=== PATIENT | female | born 1960 | race Caucasian/White ===

== ENCOUNTER 2017-06-02 14:10 | Emergency (ER) | payer MEDICARE, MEDICAID ==
[2017-06-02 14:57] VITALS: BP 140/71
[2017-06-02] MEDS ORDERED: Sodium Chloride 0.9% 1,000 ML IV SCH (15:15)
[2017-06-02] MEDS ORDERED: Insulin Regular, Human 100 Units/ML 10 ML Vial IV ONE (15:50)
[2017-06-02 15:57] LABS: CHLORIDE,CL 98 mmol/L (98-115); SODIUM,NA 133 mmol/L (136-145)
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
== END 2017-06-02 17:25 | disposition home or self-care (01) ==
LOC: KA.ED 14:10
DX: E86.0 Dehydration (principal); E11.65 Type 2 diabetes mellitus with hyperglycemia; R55 Syncope and collapse; F17.210 Nicotine dependence, cigarettes, uncomplicated; Z91.030 Bee allergy status; Z79.84 Long term (current) use of oral hypoglycemic drugs; Z79.899 Other long term (current) drug therapy
CPT/HCPCS: 36415; 80053; 81001; 82962; 84484; 85025; 96360; 96361; 96372; 99283; J1817; J7030; 93005

== ENCOUNTER 2019-10-08 02:21 | Emergency (ER) | payer MEDICARE, MEDICAID ==
[2019-10-08] MEDS ORDERED: Lidocaine 1% 20 ML MDV ONE (02:28)
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
[2019-10-08 02:49] VITALS: BP 184/86; PULSE 123
== END 2019-10-08 03:25 | disposition home or self-care (01) ==
LOC: KA.ED 02:21
DX: S01.112A Laceration without foreign body of left eyelid and periocular area, initial encounter (principal); S80.02XA Contusion of left knee, initial encounter; E78.00 Pure hypercholesterolemia, unspecified; F41.9 Anxiety disorder, unspecified; F32.9 Major depressive disorder, single episode, unspecified; E11.9 Type 2 diabetes mellitus without complications; E66.9 Obesity, unspecified; Z68.30 Body mass index [BMI] 30.0-30.9, adult; Z91.030 Bee allergy status; Z79.84 Long term (current) use of oral hypoglycemic drugs; Z79.899 Other long term (current) drug therapy; W01.0XXA Fall on same level from slipping, tripping and stumbling without subsequent striking against object, initial encounter
CPT/HCPCS: 12014; 73562-LT; 99283-25; 99284; J2001

== ENCOUNTER 2021-01-19 06:52 | Emergency (ER) | payer MEDICARE, MEDICAID ==
[2021-01-19 07:17] VITALS: BP 136/73; PULSE 98
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
--- NOTE | 2021-01-19 08:41 | CR ---
[id number] RAD/RAD Lumbar Spine 2-3V EXAM: RAD Lumbar Spine 2-3V INDICATION: RIGHT HIP PAIN. COMPARISON: None. DISCUSSION: The vertebral bodies are normal in height and alignment. Mild disc degeneration throughout the lumbar spine. Moderate bilateral facet arthropathy L3-L5. IMPRESSION: 1. Mild to moderate lumbar spondylosis. Damien Green MD 01/19/21 0840 Thank you for allowing us to participate in the care of your patient.
--- NOTE | 2021-01-19 08:42 | CR ---
[id number] RAD/RAD Pelvis 1V W 2V Right Hip EXAM: RAD Pelvis 1V W 2V Right Hip INDICATION: RIGHT HIP PAIN. COMPARISON: None. FINDINGS: Mild osteoarthritis of the hips and sacroiliac joints. No acute fracture or dislocation. A prominent stool volume is noted. IMPRESSION: 1. Mild osteoarthritis. Damien Green MD 01/19/21 0841 Thank you for allowing us to participate in the care of your patient.
== END 2021-01-19 08:45 | disposition home or self-care (01) ==
LOC: KA.ED 06:52
DX: M54.31 Sciatica, right side (principal); E78.00 Pure hypercholesterolemia, unspecified; J44.9 Chronic obstructive pulmonary disease, unspecified; K21.9 Gastro-esophageal reflux disease without esophagitis; E11.9 Type 2 diabetes mellitus without complications; Z72.0 Tobacco use; Z91.030 Bee allergy status; Z79.82 Long term (current) use of aspirin; Z79.899 Other long term (current) drug therapy; Z79.4 Long term (current) use of insulin
CPT/HCPCS: 72100; 99283

== ENCOUNTER 2021-02-19 22:09 | Emergency (ER) | payer MEDICARE, MEDICAID ==
[2021-02-19 22:25] VITALS: BP 149/85; PULSE 93
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
[2021-02-19] MEDS: Ketorolac 30 MG/ML SDV IM ONE (22:46)
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
== END 2021-02-19 23:20 | disposition home or self-care (01) ==
LOC: KA.ED 22:09
DX: S80.212A Abrasion, left knee, initial encounter (principal); M25.561 Pain in right knee; M25.551 Pain in right hip; J44.9 Chronic obstructive pulmonary disease, unspecified; E78.00 Pure hypercholesterolemia, unspecified; K21.9 Gastro-esophageal reflux disease without esophagitis; M19.90 Unspecified osteoarthritis, unspecified site; E11.9 Type 2 diabetes mellitus without complications; E66.9 Obesity, unspecified; Z68.27 Body mass index [BMI] 27.0-27.9, adult; Z88.4 Allergy status to anesthetic agent; Z91.030 Bee allergy status; Z91.048 Other nonmedicinal substance allergy status; Z79.82 Long term (current) use of aspirin; Z79.4 Long term (current) use of insulin; Z79.899 Other long term (current) drug therapy; W18.30XA Fall on same level, unspecified, initial encounter
CPT/HCPCS: 73560-RT; 96372; 99283; 99283-25; J1885

== ENCOUNTER 2021-02-23 01:16 | Emergency (ER) | payer MEDICARE, MEDICAID ==
[2021-02-23] MEDS ORDERED: Ketorolac 60 MG/2 ML SDV IM ONE (01:24)
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
[2021-02-23 01:33] VITALS: BP 186/96; PULSE 100
== END 2021-02-23 02:00 | disposition home or self-care (01) ==
LOC: KA.ED 01:16 → SUPCPDRO 01:16 → KA.ED 02:00
DX: M25.561 Pain in right knee (principal); M15.0 Primary generalized (osteo)arthritis; M54.31 Sciatica, right side; M79.651 Pain in right thigh; E11.9 Type 2 diabetes mellitus without complications; E66.9 Obesity, unspecified; E78.00 Pure hypercholesterolemia, unspecified; K21.9 Gastro-esophageal reflux disease without esophagitis; M19.90 Unspecified osteoarthritis, unspecified site; Z88.4 Allergy status to anesthetic agent; Z91.030 Bee allergy status; Z91.048 Other nonmedicinal substance allergy status; Z79.82 Long term (current) use of aspirin; Z79.4 Long term (current) use of insulin; Z79.899 Other long term (current) drug therapy
CPT/HCPCS: 96372; 99283; 99284; J1885

== ENCOUNTER 2021-03-16 05:41 | Emergency (ER) | payer MEDICARE, MEDICAID ==
[2021-03-16 06:04] VITALS: BP 142/74; PULSE 100
[2021-03-16] MEDS ORDERED: Ketorolac 60 MG/2 ML SDV IM ONE (06:36)
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
== END 2021-03-16 07:05 | disposition home or self-care (01) ==
LOC: KA.ED 05:41
DX: M25.552 Pain in left hip (principal); K21.9 Gastro-esophageal reflux disease without esophagitis; E66.9 Obesity, unspecified; E11.9 Type 2 diabetes mellitus without complications; Z79.82 Long term (current) use of aspirin; Z79.4 Long term (current) use of insulin; Z79.899 Other long term (current) drug therapy; Z88.4 Allergy status to anesthetic agent; Z72.0 Tobacco use; Z91.030 Bee allergy status; Z88.8 Allergy status to other drugs, medicaments and biological substances; Z68.26 Body mass index [BMI] 26.0-26.9, adult
CPT/HCPCS: 96372; 99283; J1885

== ENCOUNTER 2021-04-28 05:32 | Emergency (ER) | payer MEDICARE, MEDICAID ==
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
[2021-04-28] MEDS ORDERED: Sodium Chloride 0.9% 10 ML Syringe FLUSH PRN (05:41)
[2021-04-28] MEDS ORDERED: Sodium Chloride 0.9% 1,000 ML IV ONE (05:42)
[2021-04-28] MEDS ORDERED: Ondansetron 4 MG/2 ML SDV IVPUSH ONE (05:48)
[2021-04-28 07:32] LABS: ANION GAP 19.6 mmol/L (5-15)
[2021-04-28] MEDS ORDERED: Sodium Chloride 0.9% 1,000 ML IV SCH (08:45)
[2021-04-28] MEDS ORDERED: cefTRIAXone 1 GM Vial IVPUSH ONE (08:45)
--- NOTE | 2021-04-28 09:40 | CR ---
[id number] RAD/RAD Chest PA or AP 1V EXAM: RAD Chest PA or AP 1V INDICATION: ELEVATED WBC, RENAL FAILURE, DIABETES. COMPARISON: None. DISCUSSION/IMPRESSION: Cardiomediastinal silhouette is normal in size and contour. Mild central hilar prominence bilaterally. Finding is nonspecific. However could represent underlying hilar lymphadenopathy is/are changes of bronchitis/bronchiolitis. Consider CT examination of the chest without contrast for further evaluation. Lungs are otherwise clear. Johan Bahena MD 04/28/21 0997 Thank you for allowing us to participate in the care of your patient.
[2021-04-28] MEDS ORDERED: HYDROmorphone 1 MG/ML Syringe IVPUSH ONE (10:02)
[2021-04-28 10:18] VITALS: BP 100/43; PULSE 105
== END 2021-04-28 10:40 ==
LOC: KA.ED 05:32
DX: N39.0 Urinary tract infection, site not specified (principal); R00.0 Tachycardia, unspecified; R79.89 Other specified abnormal findings of blood chemistry; N19 Unspecified kidney failure; M19.90 Unspecified osteoarthritis, unspecified site; E11.9 Type 2 diabetes mellitus without complications; J44.9 Chronic obstructive pulmonary disease, unspecified; E66.9 Obesity, unspecified; Z68.26 Body mass index [BMI] 26.0-26.9, adult; Z88.4 Allergy status to anesthetic agent; Z91.030 Bee allergy status; Z91.048 Other nonmedicinal substance allergy status; E78.00 Pure hypercholesterolemia, unspecified; Z79.82 Long term (current) use of aspirin; Z79.899 Other long term (current) drug therapy
CPT/HCPCS: 36415; 71045; 80053; 81001; 82150; 83605; 83690; 84484; 85025; 87040; 87086; 87088; 87150; 87186; 93005; 96374; 96375; 99284; 99285-25; J0696; J1170; J2405; J7030

== ENCOUNTER 2021-04-29 15:11 | Emergency (ER) | payer MEDICARE, MEDICAID ==
[2021-04-29] MEDS ORDERED: Sodium Chloride 0.9% 1,000 ML IV ONE (15:59)
[2021-04-29] MEDS ORDERED: Sodium Chloride 0.9% 10 ML Syringe FLUSH PRN (15:59)
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
[2021-04-29 16:12] LABS: ANION GAP 15.1 mmol/L (5-15); CHLORIDE,CL 99 mmol/L (98-107); SODIUM,NA 132 mmol/L (136-145)
[2021-04-29 16:42] VITALS: BP 128/49; PULSE 93
== END 2021-04-29 16:58 | disposition home or self-care (01) ==
LOC: KA.ED 15:11
DX: E86.0 Dehydration (principal); R79.89 Other specified abnormal findings of blood chemistry; E11.9 Type 2 diabetes mellitus without complications; E66.9 Obesity, unspecified; E78.00 Pure hypercholesterolemia, unspecified; J44.9 Chronic obstructive pulmonary disease, unspecified; K21.9 Gastro-esophageal reflux disease without esophagitis; Z79.82 Long term (current) use of aspirin; Z79.899 Other long term (current) drug therapy; Z88.4 Allergy status to anesthetic agent; Z91.030 Bee allergy status; Z91.048 Other nonmedicinal substance allergy status
CPT/HCPCS: 36415; 80053; 81001; 82140; 83605; 83690; 85025; 99283; 99284; J7030

== ENCOUNTER 2021-11-12 11:14 | Inpatient (IN) | payer MEDICARE, MEDICAID ==
[2021-11-12] MEDS ORDERED: Sodium Chloride 0.9% 10 ML Syringe FLUSH PRN (11:42)
[2021-11-12] MEDS ORDERED: Sodium Chloride 0.9% 1,000 ML IV ONE (11:42)
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
--- NOTE | 2021-11-12 12:51 | CR ---
[id number] RAD/RAD Ankle Left 2V EXAM: 2 VIEWS LEFT ANKLE. INDICATION: LEFT ANKLE PAIN. COMPARISON: None. DISCUSSION: Acute multi fragmentary trimalleolar fracture of the left ankle. There is lateral dislocation of the tibiotalar joint. There is extensive displacement of the fracture fragments. Associated soft tissue edema and left ankle joint effusion. IMPRESSION: 1. Fracture dislocation of the left ankle as described above. Denny Torres DO 11/12/21 0064 Thank you for allowing us to participate in the care of your patient.
[2021-11-12] MEDS ORDERED: HYDROmorphone 1 MG/ML Syringe IVPUSH ONE (12:56)
[2021-11-12 13:28] LABS: ANION GAP 15.5 mmol/L (5-15); CHLORIDE,CL 98 mmol/L (98-107); SODIUM,NA 133 mmol/L (136-145)
--- NOTE | 2021-11-12 14:06 | CR ---
[id number] RAD/RAD Ankle Left 2V EXAM: RAD Ankle Left 2V INDICATION: CONFIRM REDUCTION OF DISPLACED FRACTURE. COMPARISON: November 12 at 1223 hours. DISCUSSION: Diffuse soft tissue swelling. Oblique distal fibula fracture. Alignment is improved but there is persistent posterior displacement of about 2.5 mm a medial malleolus fracture is in improved alignment, but demonstrates persistent distraction of about 4 mm. Mineralization in the distal Achilles tendon could be from enthesopathy or prior tearing. IMPRESSION: 1. Medial and lateral malleolar fractures are in improved alignment. Tibiotalar alignment has normalized. Damien Green MD 11/12/21 0779 Thank you for allowing us to participate in the care of your patient.
--- NOTE | 2021-11-12 14:56 | CR ---
[id number] RAD/RAD Chest PA And Lateral EXAM: RAD Chest PA And Lateral INDICATION: LEUKOCYTOSIS. COMPARISON: None. DISCUSSION: Cardiomediastinal silhouette is normal in size and contour. Prominence of the right hilar region. No pneumothorax or pleural effusion. IMPRESSION: Prominence of the right hilar region. Underlying mass is not excluded. Dedicated CT of the chest with contrast is recommended for further evaluation. Denny Torres DO 11/12/21 [id number] Thank you for allowing us to participate in the care of your patient.
[2021-11-12] MEDS ORDERED: Ondansetron 4 MG/2 ML SDV IV PRN (17:16)
[2021-11-12] MEDS ORDERED: Nicotine 7 MG/24 Hr Patch TRDERM PRN (17:20)
[2021-11-12] MEDS ORDERED: 50% Dextrose in Water 50 ML Syringe IVPUSH PRN (17:21)
[2021-11-12] MEDS ORDERED: HYDROmorphone 1 MG/ML Syringe IVPUSH PRN (17:21)
[2021-11-12] MEDS ORDERED: Glucagon,Human Recombinant 1 MG Vial IM PRN (17:21)
[2021-11-12] MEDS ORDERED: Albuterol/Ipratropium 3.0-0.5 MG/3 ML Neb Soln INH PRN (17:22)
[2021-11-12] MEDS: Sodium Chloride 0.9% 1,000 ML IV SCH (17:52)
[2021-11-12] MEDS: Insulin Aspart 100 Units/ML 3 ML Pen SUBCUT SCH ×2 (18:03→21:30)
[2021-11-12] MEDS: Glimepiride 2 MG Tab PO SCH (18:06)
[2021-11-12] MEDS ORDERED: Morphine 2 MG/ML SYRINGE IVPUSH PRN (19:27)
[2021-11-12] MEDS: Acetaminophen/HYDROcodone 325-5 MG Tab PO PRN (19:31)
[2021-11-12] MEDS ORDERED: Lisinopril 5 MG Tab PO SCH (21:00)
[2021-11-12] MEDS ORDERED: Rosuvastatin 5 MG Tab PO SCH (21:00)
[2021-11-12] MEDS ORDERED: DULoxetine 30 MG Cap PO SCH (21:00)
[2021-11-12] MEDS ORDERED: Non-Formulary Medication 1 Each (Canagliflozin [Invokana] 100 MG Tablet) PO SCH (21:00)
[2021-11-12] MEDS ORDERED: Pantoprazole 40 MG Tab.CR PO SCH (21:00)
[2021-11-12] MEDS ORDERED: Insulin Glargine,Hum.Rec.Anlog 100 UNIT/ML 3 ML Pen SUBCUT SCH (21:00)
--- NOTE | 2021-11-12 21:10 | CR ---
[id number] RAD/RAD Pelvis 1-2V EXAM: AP PELVIS, LEFT FEMUR 2 VIEWS CLINICAL DATA: FALL COMPARISON: January 19, 2021. FINDINGS: Mild osteoarthritis of the hips, left knee, and sacroiliac joints. No acute fracture or dislocation IMPRESSION: 1. No acute findings. Damien Green MD 11/12/21 0099 Thank you for allowing us to participate in the care of your patient.
--- NOTE | 2021-11-12 21:10 | CR ---
[id number] RAD/RAD Femur Left 2V EXAM: AP PELVIS, LEFT FEMUR 2 VIEWS CLINICAL DATA: FALL COMPARISON: January 19, 2021. FINDINGS: Mild osteoarthritis of the hips, left knee, and sacroiliac joints. No acute fracture or dislocation IMPRESSION: 1. No acute findings. Damien Green MD 11/12/21 [id number] Thank you for allowing us to participate in the care of your patient.
[2021-11-12] MEDS: Pregabalin 25 MG Cap PO SCH (21:26)
[2021-11-12] MEDS: Baclofen 10 MG Tab PO SCH (21:26)
[2021-11-13] MEDS: Sodium Chloride 0.9% 1,000 ML IV SCH ×2 (02:23→10:27)
[2021-11-13] MEDS: Insulin Aspart 100 Units/ML 3 ML Pen SUBCUT SCH ×2 (07:58→11:34)
[2021-11-13] MEDS: Pregabalin 25 MG Cap PO SCH (08:01)
[2021-11-13] MEDS: Baclofen 10 MG Tab PO SCH (08:01)
[2021-11-13] MEDS: Glimepiride 2 MG Tab PO SCH (08:01)
[2021-11-13 08:16] LABS: ANION GAP 14.9 mmol/L (5-15); CHLORIDE,CL 103 mmol/L (98-107); SODIUM,NA 140 mmol/L (136-145)
[2021-11-13] MEDS ORDERED: Cholecalciferol (Vitamin D3) 25 MCG Tab PO SCH (09:00)
[2021-11-13] MEDS ORDERED: Formoterol/Mometasone 100-5 MCG 8.8 GM Inhaler IH SCH (09:00)
[2021-11-13] MEDS ORDERED: Non-Formulary Medication 1 Each (Cyanocobalamin (Vitamin B-12) [Vitamin B-12] 100 MCG Tabl PO SCH (09:00)
[2021-11-13] MEDS ORDERED: Non-Formulary Medication 1 Each (Fenofibrate [Fenofibrate] 160 MG Tablet) PO SCH (09:00)
[2021-11-13] MEDS ORDERED: Baclofen 10 MG Tab PO PRN (10:00)
[2021-11-13] MEDS: Acetaminophen/HYDROcodone 325-5 MG Tab PO PRN (10:16)
[2021-11-13 10:20] VITALS: BP 108/59; PULSE 99
[2021-11-13] MEDS ORDERED: cefTRIAXone 1 GM Vial IVPUSH SCH (10:30)
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
--- NOTE | 2021-11-13 12:08 | PCM.DCSUM1 ---
Discharge Summary - Hospital Course Free Text/Narrative:: Date of admission: 11/12/21 Date of discharge: 11/13/21 Admission diagnoses: Discharge diagnoses: Hospital course: 11/13/21: Patient reports pain 6/10 to Left ankle, denies other concerns including urinary symptoms. Affect rather flat. Vitals stable, afebrile: 97.1, HR 88, BP 131/71, RR 20, 94% on room air. WBC 21.01, Hgb 13.0, Plt 558. WBC remains elevated this morning, UA suggestive of UTI with > 100 WBC, moderate bacteria. Will start patient on rocephin 1g for probable UTI as patient is a rather poor historian based on bacteruria and leukocytosis. Blood glucose improved with sliding scale insulin, glucose 452 in ER, 152 this am. Patient case discussed with Dr Hudson, [facility] ER who accepts to transfer patient for planned ORIF of L ankle per Dr Dewey to be completed likely tomorrow morning. Patient to remain NPO upon transfer in case surgery able to be completed later today. [facility] requesting that a CT of the L ankle and head CT without contrast be obtained prior to transfer to [place]. Dr Hudson indicates that results do not need to be completed prior to transfer, however they request that images be obtained and pushed to [place] prior to transfer by EMS. Discharge and follow-up recommendations: - Discharge to [facility] for ORIF of L ankle s/p ankle fracture per Dr Dewey. - New medications at discharge: Substituting protonix 40mg PO daily for omeprazole; holding ASA 81mg daily and mobic preoperatively. - Follow-up with PCP post-hospitalization for ORIF of left ankle s/p fall yesterday at home - Discharge Data Discharge Disposition: Home, Self-Care 01 Condition: Good - Referral to Home Health Primary Care Physician: Martha Myers NP - Discharge Plan Home Medications: Home Meds Fenofibrate 160 mg PO DAILY 07/08/16 [History] Aspirin [Adult Low Dose Aspirin EC] 81 mg PO DAILY 08/15/18 [History] Fluticasone/Vilanterol [Breo Ellipta 100-25 MCG Inhalation Kit] 1 puff INH DAILY 08/15/18 [History] Insulin Detemir [Levemir] 50 unit SUBCUT BEDTIME 01/19/21 [History] Acetaminophen [Tylenol Arthritis] 650 mg PO Q8H PRN 03/16/21 [History] Canagliflozin [Invokana] 100 mg PO BEDTIME 04/23/21 [History] Glimepiride [Amaryl] 2 mg PO BIDMEALS 04/23/21 [History] Albuterol Sulfate [Albuterol Sulfate HFA] 1 - 2 puff INH Q4H PRN 04/29/21 [History] Albuterol/Ipratropium [DuoNeb 3.0-0.5 MG/3 ML] 3 ml INH Q6H PRN 04/29/21 [History] EPINEPHrine [Epinephrine] 0.3 mg IM ASDIRECTED PRN 04/29/21 [History] Non-Formulary Medication [NF Drug] 1 applic TOP BID PRN 04/29/21 [History] Omeprazole 20 mg PO BEDTIME 04/29/21 [History] Rosuvastatin [Crestor] 5 mg PO BEDTIME 04/29/21 [History] Saliva Substitute Combo No.9 [Biotene] 15 ml MM BID 04/29/21 [History] ALPRAZolam [Xanax] 0.25 mg PO DAILY PRN 07/03/21 [History] lisinopriL [Lisinopril] 10 mg PO BEDTIME 07/03/21 [History] Baclofen 10 mg PO TID 11/12/21 [History] Cholecalciferol (Vitamin D3) [Vitamin D3] 125 mcg PO DAILY 11/12/21 [History] Cyanocobalamin (Vitamin B-12) [Vitamin B-12] 100 mcg PO DAILY 11/12/21 [History] DULoxetine [Cymbalta] 60 mg PO BEDTIME 11/12/21 [History] Meloxicam [Mobic] 15 mg PO BEDTIME 11/12/21 [History] Pregabalin [Lyrica] 150 mg PO BID 11/12/21 [History] Forms: ED Department Discharge Referrals: Martha Myers TRY OUT PERSON [Primary Care Provider] - - General Info Date of Service: 11/13/21 Subjective Update: See ROS from H&P from today Functional Status: Reports: Pain Controlled. Denies: Ambulating - Patient Data Vitals - Most Recent: Last Vital Signs Temp 98 F 11/13/21 10:18 Pulse 99 11/13/21 10:18 Resp 18 11/13/21 10:18 BP 108/59 L 11/13/21 10:18 Pulse Ox 91 L 11/13/21 10:18 Weight - Most Recent: 146 lb 9.718 oz I&O - Last 24 hours: Intake & Output 11/12/21 11/13/21 11/13/21 22:59 06:59 14:59 Intake Total 300 1470 Balance 300 1470 Lab Results - Last 24 hrs: Laboratory Results - last 24 hr 11/12/21 11/12/21 11/12/21 Range/Units 12:55 12:55 14:15 WBC 23.61 H D (5.00-10.00) 10^3/uL RBC 4.15 (3.80-5.50) 10^6/uL Hgb 12.6 D (12.0-16.0) g/dL Hct 36.6 L (37.0-47.0) % MCV 88.2 (82.0-92.0) fL MCH 30.4 (27.0-31.0) pg MCHC 34.4 (32.0-36.0) g/dL RDW 11.5 (11.5-14.5) % Plt Count 542 H D (150-400) 10^3/uL MPV 8.6 (7.4-10.4) fL Immature Gran % (Auto) 1.1 (0.0-5.0) % Neut % (Auto) 86.8 H (50.0-70.0) % Lymph % (Auto) 7.7 L (20.0-40.0) % [place] % (Auto) 4.0 (2.0-8.0) % Eos % (Auto) 0.3 L (1.0-3.0) % Baso % (Auto) 0.1 (0.0-1.0) % Neut # (Auto) 20.52 H (2.50-7.00) 10^3/uL Lymph # (Auto) 1.81 (1.00-4.00) 10^3/uL [place] # (Auto) 0.94 H (0.10-0.80) 10^3/uL Eos # (Auto) 0.06 L (0.10-0.30) 10^3/uL Baso # (Auto) 0.03 (0.00-0.10) 10^3/uL Immature Gran # (Auto) 0.25 (0.00-0.50) 10^3/uL Sodium 133 L (136-145) mmol/L Potassium 4.1 (3.5-5.1) mmol/L Chloride 98 (98-107) mmol/L Carbon Dioxide 23.6 (21.0-32.0) mmol/L Anion Gap 15.5 H (5-15) mmol/L BUN 13 (7-18) mg/dL Creatinine 0.73 (0.51-1.17) mg/dL Est Cr Clr Drug Dosing 62.61 mL/min Estimated GFR (MDRD) > 60 mL/min Glucose 484 H (70-140) mg/dL POC Glucose (70-140) mg/dL Calcium 8.3 L (8.7-10.3) mg/dL Total Bilirubin (0.2-1.0) mg/dL AST (15-37) U/L ALT (14-63) U/L Alkaline Phosphatase (46-116) U/L Total Protein (6.4-8.2) g/dL Albumin (3.40-5.00) g/dL Specimen Type Urine Color (YELLOW) Urine Appearance (CLEAR) Urine pH (5.0-9.0) Ur Specific [place] (1.005-1.030) Urine Protein (NEGATIVE) mg/dL Urine Glucose (UA) (NEGATIVE) mg/dL Urine Ketones (NEGATIVE) mg/dL Urine Occult Blood (NEGATIVE) Urine Nitrite (NEGATIVE) Urine Bilirubin (NEGATIVE) Urine Urobilinogen (0.2-1.0) E.U./dL Ur Leukocyte Esterase (NEGATIVE) Urine RBC (0-5) /HPF Urine WBC (0-5) /HPF Ur Epithelial Cells /LPF Urine Bacteria (NONE TO FEW) /HPF SARS CoV-2 RNA Rapid LENA Negative (NEGATIVE) 11/12/21 11/12/21 11/12/21 Range/Units 16:14 17:42 21:12 WBC (5.00-10.00) 10^3/uL RBC (3.80-5.50) 10^6/uL Hgb (12.0-16.0) g/dL Hct (37.0-47.0) % MCV (82.0-92.0) fL MCH (27.0-31.0) pg MCHC (32.0-36.0) g/dL RDW (11.5-14.5) % Plt Count (150-400) 10^3/uL MPV (7.4-10.4) fL Immature Gran % (Auto) (0.0-5.0) % Neut % (Auto) (50.0-70.0) % Lymph % (Auto) (20.0-40.0) % [place] % (Auto) (2.0-8.0) % Eos % (Auto) (1.0-3.0) % Baso % (Auto) (0.0-1.0) % Neut # (Auto) (2.50-7.00) 10^3/uL Lymph # (Auto) (1.00-4.00) 10^3/uL [place] # (Auto) (0.10-0.80) 10^3/uL Eos # (Auto) (0.10-0.30) 10^3/uL Baso # (Auto) (0.00-0.10) 10^3/uL Immature Gran # (Auto) (0.00-0.50) 10^3/uL Sodium (136-145) mmol/L Potassium (3.5-5.1) mmol/L Chloride (98-107) mmol/L Carbon Dioxide (21.0-32.0) mmol/L Anion Gap (5-15) mmol/L BUN (7-18) mg/dL Creatinine (0.51-1.17) mg/dL Est Cr Clr Drug Dosing mL/min Estimated GFR (MDRD) mL/min Glucose (70-140) mg/dL POC Glucose 423 H 371 H (70-140) mg/dL Calcium (8.7-10.3) mg/dL Total Bilirubin (0.2-1.0) mg/dL AST (15-37) U/L ALT (14-63) U/L Alkaline Phosphatase (46-116) U/L Total Protein (6.4-8.2) g/dL Albumin (3.40-5.00) g/dL Specimen Type [place]rin[place]ad Urine Color Yellow (YELLOW) Urine Appearance Slightly cloudy H (CLEAR) Urine pH 6.0 (5.0-9.0) Ur Specific [place] 1.015 (1.005-1.030) Urine Protein 100 H (NEGATIVE) mg/dL Urine Glucose (UA) >=1000 H (NEGATIVE) mg/dL Urine Ketones Negative (NEGATIVE) mg/dL Urine Occult Blood Large H (NEGATIVE) Urine Nitrite Positive H (NEGATIVE) Urine Bilirubin Negative (NEGATIVE) Urine Urobilinogen 0.2 (0.2-1.0) E.U./dL Ur Leukocyte Esterase Trace H (NEGATIVE) Urine RBC 20-30 H (0-5) /HPF Urine WBC >100 H (0-5) /HPF Ur Epithelial Cells Rare /LPF Urine Bacteria Moderate H (NONE TO FEW) /HPF SARS CoV-2 RNA Rapid LENA (NEGATIVE) 11/13/21 11/13/21 11/13/21 Range/Units 07:28 07:50 07:50 WBC 21.01 H (5.00-10.00) 10^3/uL RBC 4.27 (3.80-5.50) 10^6/uL Hgb 13.0 (12.0-16.0) g/dL Hct 38.5 (37.0-47.0) % MCV 90.2 (82.0-92.0) fL MCH 30.4 (27.0-31.0) pg MCHC 33.8 (32.0-36.0) g/dL RDW 11.7 (11.5-14.5) % Plt Count 558 H (150-400) 10^3/uL MPV 8.6 (7.4-10.4) fL Immature Gran % (Auto) 0.9 (0.0-5.0) % Neut % (Auto) 76.9 H (50.0-70.0) % Lymph % (Auto) 14.4 L (20.0-40.0) % [place] % (Auto) 5.1 (2.0-8.0) % Eos % (Auto) 2.5 (1.0-3.0) % Baso % (Auto) 0.2 (0.0-1.0) % Neut # (Auto) 16.17 H (2.50-7.00) 10^3/uL Lymph # (Auto) 3.02 (1.00-4.00) 10^3/uL [place] # (Auto) 1.07 H (0.10-0.80) 10^3/uL Eos # (Auto) 0.52 H (0.10-0.30) 10^3/uL Baso # (Auto) 0.05 (0.00-0.10) 10^3/uL Immature Gran # (Auto) 0.18 (0.00-0.50) 10^3/uL Sodium 140 (136-145) mmol/L Potassium 4.0 (3.5-5.1) mmol/L Chloride 103 (98-107) mmol/L Carbon Dioxide 26.1 (21.0-32.0) mmol/L Anion Gap 14.9 (5-15) mmol/L BUN 15 (7-18) mg/dL Creatinine 0.71 (0.51-1.17) mg/dL Est Cr Clr Drug Dosing 64.38 mL/min Estimated GFR (MDRD) > 60 mL/min Glucose 157 H (70-140) mg/dL POC Glucose 152 H (70-140) mg/dL Calcium 8.8 (8.7-10.3) mg/dL Total Bilirubin 0.3 (0.2-1.0) mg/dL AST 10 L (15-37) U/L ALT 13 L (14-63) U/L Alkaline Phosphatase 136 H (46-116) U/L Total Protein 7.0 (6.4-8.2) g/dL Albumin 1.92 L (3.40-5.00) g/dL Specimen Type Urine Color (YELLOW) Urine Appearance (CLEAR) Urine pH (5.0-9.0) Ur Specific [place] (1.005-1.030) Urine Protein (NEGATIVE) mg/dL Urine Glucose (UA) (NEGATIVE) mg/dL Urine Ketones (NEGATIVE) mg/dL Urine Occult Blood (NEGATIVE) Urine Nitrite (NEGATIVE) Urine Bilirubin (NEGATIVE) Urine Urobilinogen (0.2-1.0) E.U./dL Ur Leukocyte Esterase (NEGATIVE) Urine RBC (0-5) /HPF Urine WBC (0-5) /HPF Ur Epithelial Cells /LPF Urine Bacteria (NONE TO FEW) /HPF SARS CoV-2 RNA Rapid LENA (NEGATIVE) 11/13/21 Range/Units 11:17 WBC (5.00-10.00) 10^3/uL RBC (3.80-5.50) 10^6/uL Hgb (12.0-16.0) g/dL Hct (37.0-47.0) % MCV (82.0-92.0) fL MCH (27.0-31.0) pg MCHC (32.0-36.0) g/dL RDW (11.5-14.5) % Plt Count (150-400) 10^3/uL MPV (7.4-10.4) fL Immature Gran % (Auto) (0.0-5.0) % Neut % (Auto) (50.0-70.0) % Lymph % (Auto) (20.0-40.0) % [place] % (Auto) (2.0-8.0) % Eos % (Auto) (1.0-3.0) % Baso % (Auto) (0.0-1.0) % Neut # (Auto) (2.50-7.00) 10^3/uL Lymph # (Auto) (1.00-4.00) 10^3/uL [place] # (Auto) (0.10-0.80) 10^3/uL Eos # (Auto) (0.10-0.30) 10^3/uL Baso # (Auto) (0.00-0.10) 10^3/uL Immature Gran # (Auto) (0.00-0.50) 10^3/uL Sodium (136-145) mmol/L Potassium (3.5-5.1) mmol/L Chloride (98-107) mmol/L Carbon Dioxide (21.0-32.0) mmol/L Anion Gap (5-15) mmol/L BUN (7-18) mg/dL Creatinine (0.51-1.17) mg/dL Est Cr Clr Drug Dosing mL/min Estimated GFR (MDRD) mL/min Glucose (70-140) mg/dL POC Glucose 251 H (70-140) mg/dL Calcium (8.7-10.3) mg/dL Total Bilirubin (0.2-1.0) mg/dL AST (15-37) U/L ALT (14-63) U/L Alkaline Phosphatase (46-116) U/L Total Protein (6.4-8.2) g/dL Albumin (3.40-5.00) g/dL Specimen Type Urine Color (YELLOW) Urine Appearance (CLEAR) Urine pH (5.0-9.0) Ur Specific [place] (1.005-1.030) Urine Protein (NEGATIVE) mg/dL Urine Glucose (UA) (NEGATIVE) mg/dL Urine Ketones (NEGATIVE) mg/dL Urine Occult Blood (NEGATIVE) Urine Nitrite (NEGATIVE) Urine Bilirubin (NEGATIVE) Urine Urobilinogen (0.2-1.0) E.U./dL Ur Leukocyte Esterase (NEGATIVE) Urine RBC (0-5) /HPF Urine WBC (0-5) /HPF Ur Epithelial Cells /LPF Urine Bacteria (NONE TO FEW) /HPF SARS CoV-2 RNA Rapid LENA (NEGATIVE) Med Orders - Current: Current Medications Hydrocodone Bitart/Acetaminophen (Acetaminophen/Hydrocodone 325-5 Mg Tab) 1 tab PO Q4H PRN PRN Reason: Pain (moderate 4-6) Last Admin: 11/13/21 10:16 Dose: 1 tab Documented by: Albuterol/Ipratropium (Albuterol/Ipratropium 3.0-0.5 Mg/3 Ml Neb Soln) 3 ml INH Q6H PRN PRN Reason: SOB, wheezing, bronchospasm Baclofen (Baclofen 10 Mg Tab) 10 mg PO TID PRN PRN Reason: Muscle Spasm - Painful Ceftriaxone Sodium (Ceftriaxone 1 Gm Vial) 1 gm IVPUSH Q24H [facility] Last Admin: 11/13/21 10:27 Dose: 1 gm Documented by: Cholecalciferol (Cholecalciferol (Vitamin D3) 25 Mcg Tab) 125 mcg PO DAILY [facility] Last Admin: 11/13/21 08:01 Dose: 125 mcg Documented by: Dextrose/Water (50% Dextrose In Water 50 Ml Syringe) 50 ml IVPUSH ASDIRECTED PRN PRN Reason: Hypoglycemia Duloxetine HCl (Duloxetine 30 Mg Cap) 60 mg PO BEDTIME [facility] Last Admin: 11/12/21 21:26 Dose: 60 mg Documented by: Glimepiride (Glimepiride 2 Mg Tab) 2 mg PO BIDMEALS [facility] Last Admin: 11/13/21 08:01 Dose: 2 mg Documented by: Glucagon (Glucagon,Human Recombinant 1 Mg Vial) 1 mg IM ASDIRECTED PRN PRN Reason: Hypoglycemia Sodium Chloride (Normal Saline) 1,000 mls @ 125 mls/hr IV ASDIRECTED [facility] Last Admin: 11/13/21 10:27 Dose: 125 mls/hr Documented by: Insulin Aspart (Insulin Aspart 100 Units/Ml 3 Ml Pen) 0 unit SUBCUT WITHMEALSANDBED [place]PE; Protocol Last Admin: 11/13/21 11:34 Dose: 6 unit Documented by: Insulin Glargine (Insulin Glargine,Hum.Rec.Anlog 100 Unit/Ml 3 Ml Pen) 50 unit SUBCUT BEDTIME [facility] Last Admin: 11/12/21 21:29 Dose: 50 unit Documented by: Lisinopril (Lisinopril 5 Mg Tab) 10 mg PO BEDTIME [facility] Last Admin: 11/12/21 21:26 Dose: 10 mg Documented by: Mometasone Furoate/Formoterol Fumar (Formoterol/Mometasone 100-5 Mcg 8.8 Gm Inhaler) 2 puff IH DAILY [facility] Last Admin: 11/13/21 08:00 Dose: 2 puff Documented by: Morphine Sulfate (Morphine 2 Mg/Ml Syringe) 2 mg IVPUSH Q4H PRN PRN Reason: Severe Pain Nicotine (Nicotine 7 Mg/24 Hr Patch) 7 mg TRDERM DAILY PRN PRN Reason: nicotine craving Non-Formulary Medication (Canagliflozin [Invokana]) 100 mg PO BEDTIME [facility] Non-Formulary Medication (Cyanocobalamin (Vitamin B-12) [Vitamin B-12]) 100 mcg PO DAILY [facility] Non-Formulary Medication (Fenofibrate [Fenofibrate]) 160 mg PO DAILY [facility] Ondansetron HCl (Ondansetron 4 Mg/2 Ml Sdv) 4 mg IV Q4H PRN PRN Reason: Nausea/Vomiting Pantoprazole Sodium (Pantoprazole 40 Mg Tab.Cr) 40 mg PO BEDTIME [facility] Last Admin: 11/12/21 21:26 Dose: 40 mg Documented by: Pregabalin (Pregabalin 25 Mg Cap) 150 mg PO BID [facility] Last Admin: 11/13/21 08:01 Dose: 150 mg Documented by: Rosuvastatin Calcium (Rosuvastatin 5 Mg Tab) 5 mg PO BEDTIME [facility] Last Admin: 11/12/21 21:26 Dose: 5 mg Documented by: Saliva Substitute (Saliva Substitute Oral [place] 120 Ml Bottle) 0 ml MUCMEM BID [facility] Sodium Chloride (Sodium Chloride 0.9% 10 Ml Syringe) 10 ml FLUSH Q8HR PRN PRN Reason: keep vein open Last Admin: 11/12/21 17:55 Dose: 10 ml Documented by: Discontinued Medications Baclofen (Baclofen 10 Mg Tab) 10 mg PO TID [facility] Last Admin: 11/13/21 08:01 Dose: 10 mg Documented by: Hydromorphone HCl (Hydromorphone 1 Mg/Ml Syringe) 1 mg IVPUSH ONETIME ONE Stop: 11/12/21 12:57 Last Admin: 11/12/21 13:00 Dose: 1 mg Documented by: Hydromorphone HCl (Hydromorphone 1 Mg/Ml Syringe) 1 mg IVPUSH Q4H PRN PRN Reason: Pain (severe 7-10) Sodium Chloride (Normal Saline) 1,000 mls @ 999 mls/hr IV .BOLUS ONE Stop: 11/12/21 12:42 Last Admin: 11/12/21 11:49 Dose: 999 mls/hr Documented by: Comments:: see exam findings from H&P dated today
--- NOTE | 2021-11-13 13:44 | CT ---
[id number] CT/CT Head WO IV EXAM: NONCONTRAST HEAD CT INDICATION: FALL PRIOR TO ADMISSION, REQUEST OF ACCEPTING MD. COMPARISON: July 08, 2016. DISCUSSION: Focal left frontal encephalomalacia compatible with prior infarct or other insult. This is not clearly seen on the comparison study. No acute hemorrhage, mass effect, or midline shift. No acute territorial infarct. Layering fluid in the left maxillary sinus. Fluid, focal mucosal thickening or mucosal retention cyst right maxillary sinus. There is an opacified right ethmoid air cell and scattered frothy secretions in the left ethmoid sinuses. IMPRESSION: 1. Sinusitis. 2. No acute intracranial findings. Damien Green MD 11/13/21 [id number] Thank you for allowing us to participate in the care of your patient.
--- NOTE | 2021-11-13 13:49 | CT ---
[id number] CT/CT Ankle Left WO IV Exam: CT Ankle Left WO IV Indication:REQUEST OF ORTHOPEDICS,LEFT ANKLE FRACTURE. Comparison: Radiograph from yesterday. Discussion: Acute trimalleolar fracture. Fracture at the base of the medial malleolus demonstrates up to 4 mm of separation. Fracture is mildly comminuted. Distal fibular fracture is also comminuted extending from metaphysis through the physeal scar into the epiphysis. Up to 2-3 mm of separation at the obliquely orientated metaphysis fracture site. Fracture extends into the distal tibiofibular syndesmosis. Posterior malleolus fracture involves the posterior aspect of the tibial plafond, at least a 5 x 13 mm segment of the tibial plafond and/subchondral endplate is posteriorly displaced. Findings result in ankle mortise instability. There is widening of the medial gutter of the ankle mortise. Acute appearing fracture arising from the tip of the superior aspect of the anterior calcaneal process. Soft tissue edema/contusion in the lower leg extending into the foot. IMPRESSION: Acute unstable trimalleolar fracture of the ankle mortise with associated findings, described above. Johan Bahena MD 11/13/21 2232 Thank you for allowing us to participate in the care of your patient.
[2021-11-13] MEDS ORDERED: Saliva Substitute Oral Spray 120 ML Bottle MUCMEM SCH (21:00)
== END 2021-11-13 12:54 | DRG 563 ==
LOC: KA.ED 11:14 → KA.MS 14:36
PROVIDERS: ADMIT Family Medicine; ATTEND Family Medicine
DX: S82.852A Displaced trimalleolar fracture of left lower leg, initial encounter for closed fracture (principal); N39.0 Urinary tract infection, site not specified; J44.9 Chronic obstructive pulmonary disease, unspecified; D72.829 Elevated white blood cell count, unspecified; E11.65 Type 2 diabetes mellitus with hyperglycemia; E78.2 Mixed hyperlipidemia; K21.9 Gastro-esophageal reflux disease without esophagitis; F32.A Depression, unspecified; G47.00 Insomnia, unspecified; M19.90 Unspecified osteoarthritis, unspecified site; M51.36 Other intervertebral disc degeneration, lumbar region; E55.9 Vitamin D deficiency, unspecified; Z20.822 Contact with and (suspected) exposure to COVID-19; M54.9 Dorsalgia, unspecified; H54.7 Unspecified visual loss; J30.9 Allergic rhinitis, unspecified; E78.00 Pure hypercholesterolemia, unspecified; K76.0 Fatty (change of) liver, not elsewhere classified; M06.9 Rheumatoid arthritis, unspecified; G89.29 Other chronic pain; M54.2 Cervicalgia; E11.42 Type 2 diabetes mellitus with diabetic polyneuropathy; F41.9 Anxiety disorder, unspecified; D64.9 Anemia, unspecified; F17.210 Nicotine dependence, cigarettes, uncomplicated; Z88.8 Allergy status to other drugs, medicaments and biological substances; Z88.4 Allergy status to anesthetic agent; Z79.82 Long term (current) use of aspirin; Z91.030 Bee allergy status; Z79.4 Long term (current) use of insulin; Z79.899 Other long term (current) drug therapy; W19.XXXA Unspecified fall, initial encounter
CPT/HCPCS: 36415; 70450; 71046; 72170; 73600-LT; 73700-LT; 80048; 80053; 81001; 82947; 85025; 87086; 87186; 96374; 99284; 99284-25; A9270-GY; J0696; J1170; J1815-GY; J7030; U0002